=== PATIENT | female | born 1975 | race Caucasian/White ===

== ENCOUNTER 2022-02-25 12:28 | Emergency (ER) | payer BC, SELFPAY ==
[2022-02-25 12:35] VITALS: BP 130/86; PULSE 114; RESP 16; TEMP 36.1; O2SAT 97; BMI 31.1
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
[2022-02-25] MEDS: IPRAT-ALBUT 0.5-2.5 MG/3 ML NEB 1 NEB IH (13:01)
--- OUTSIDE RECORDS SUMMARY | 2022-02-25 13:11 | XMS_ITS | Clinical Summary ---
:1975 Author Organization [facility] [place] [address] Care Team Providers Name Role Phone Meenu Tabares MD Primary Care Provider [phone] Allergies Active Allergy Reactions Severity Noted Date Comments Medroxyprogesterone Hypertension 08/08/2007 Metoclopramide Hcl Agitation 12/05/2018 akathesia Medications Medication Sig Dispensed Refills Start Date End Date Status rx ondansetron (ZOFRAN Take 1 tablet by 4 tablet 0 12/04/2018 Active ODT) 4 mg orally mouth every 8 disintegrating tablet hours if needed. (ED DC MED)Indications: Other migraine without status migrainosus, not intractable albuterol (PROVENTIL) Inhale 3 mL via 30 Neb 0 01/13/2019 Active 0.083 % neb a nebulizer solutionIndications: every 4 hours if Cough, SOB (shortness needed. of breath), Wheezing hydrOXYzine pamoate Take 1-3 60 capsule. 11 05/12/2020 Active (VISTARIL) 25 mg capsules by capsuleIndications: mouth every 6 Anxiety hours if needed for Anxiety. topiramate (TOPAMAX) Take 1 tablet by 180 tablet. 0 07/08/2020 Active 100 mg mouth 2 times tabletIndications: daily. Intractable migraine without status migrainosus, unspecified migraine type albuterol HFA Inhale 2 Puffs 54 g 0 08/31/2020 Active (PRO-AIR; VENTOLIN; by mouth every 4 PROVENTIL) 90 hours if needed. mcg/actuation inhalerIndications: Cough, Wheezing risperiDONE Take 0.5 mg by 0 10/07/2020 Ac tive (RISPERDAL) 0.5 mg mouth 2 times tablet daily. topiramate (TOPAMAX) Take 1 Tablet 180 tablet. 3 10/20/2020 Active 25 mg (25 mg) by mouth tabletIndications: 2 times daily. Intractable migraine without status migrainosus, unspecified migraine type Graduated Compression For personal 2 Packet 0 10/19/2020 Active StockingsIndications: use. Length: Bilateral lower calf Strength: extremity edema 16-20 mmHg DULoxetine (CYMBALTA) Take 1 Capsule 90 Capsule 1 11/16/2020 Active 60 mg Delayed-release (60 mg) by mouth capsuleIndications: once daily. Anxiety divalproex (DEPAKOTE Take 1 Tablet 90 tablet. 0 02/23/2021 Active ER) 250 mg (250 mg) by Extended-Release mouth once tabletIndications: daily. IF GI Intractable migraine UPSET, TAKE WITH without status FOOD. migrainosus, unspecified migraine type frovatriptan (FROVA) Take 1 Tablet 12 tablet. 1 02/24/2021 Active 2.5 mg tabIndications: (2.5 mg) by Intractable migraine mouth 3 times without status daily if needed migrainosus, for Migraine. unspecified migraine Give at minimum type 2hrs apart. Max Dose: 7.5mg per 24hrs. Latuda 40 mg tablet Take 40 mg by 0 03/04/2021 Active mouth. lithium carbonate Take 900 mg by 0 03/13/2021 Active (LITHOBID) 300 mg mouth at Controlled-Release bedtime. tablet busPIRone (BUSPAR) 15 Take 15 mg by 0 03/01/2021 Active mg tablet mouth 2 times daily. aspirin (ECOTRIN) 81 Take 1 Tablet 0 03/24/2021 Active mg enteric coated (81 mg) by mouth tabletIndications: once daily with Type 2 diabetes a meal. mellitus without complication, without long-term current use of insulin (HC) rosuvastatin (CRESTOR) Take 1 Tablet (5 90 Tablet 3 03/24/2021 Active 5 mg mg) by mouth at tabletIndications: bedtime. Type 2 diabetes mellitus without complication, without long-term current use of insulin (HC) blood sugar diagnostic Dispense item 100 Each 5 04/04/2021 Active (Contour Next Test covered by pt Strips) ins. E11.9 NIDDM stripIndications: Type type II - Test 3 2 diabetes mellitus times/day, without complication, Reason: New without long-term diabetes current use of insulin (HC) lancets (Microlet Test 3 times 100 Each 5 04/04/2021 Active Lancet)Indications: daily Type 2 diabetes mellitus without complication, without long-term current use of insulin (HC) acyclovir (ZOVIRAX) TAKE 1 TABLET BY 10 Tablet 5 08/20/2021 Active 800 mg MOUTH TWICE tabletIndications: DAILY Recurrent cold sores traZODone (DESYREL) 50 Take 2 Tablets 60 Tablet 0 10/08/2021 Active mg tabletIndications: (100 mg) by Insomnia, unspecified mouth at type bedtime. 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 Sensitive to light and sound not smell Nausea vomit and diarrhea Acute phase solumedrol and depakote IV's ; relpax has been helpful; Percocet from emergency room Preventions - depakote with topamax; bot ox no help proproanolol and amitriptyline no help Diagnosis from [facility]: chronic intractable migraine headache Medication overuse headache Chronic tension type headache ixed headache syndrome complicated by me dication overuse headache [facility]i had not more to offer so ref to [facility] Jimenez[facility] depakote and topamax and offered relpax again but has been expensive - no Percocet Worse with big fronts and big change of weather Prednisone 60mg helps in rescue phase Helicobacter pylori (H. 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 Excessive or frequent menstruation 09/30/2007 Other and unspecified ovarian cyst 09/30/2007 Immunizations Name Administration Dates Next Due Influenza, IIV4 05/12/2020, 02/24/2019, 05/12/2018 Tdap 05/12/2018, 09/30/2007 Tuberculin (PPD) 07/23/2017 Family History Medical History Relation Name Comments Other Maternal Grandmother alzheimers Heart Disease Paternal Grandfather 75 Allergies Son 1 Asthma Son 2 Anesthesia Malignant Hyperthermia No Family History Blood Disease No Family History Relation Name Status Comments Maternal Grandmother Paternal Grandfather Son 1 Son 2 Social History Tobacco Use Types Packs/Day Years Used Date Current Every Day Smoker Cigarettes 0.5 10 Smokeless Tobacco: Never Used Tobacco Cessation: Ready to Quit: Yes; C ounseling Given: Yes Comments: 5-6 per day Alcohol Use Standard Drinks/Week Comments Yes 0 (1 standard drink = 0.6 oz pure alcoho l) rarely Alcohol Habits Answer Date Recorded How often do you have a drink containing alcohol? Monthly or less 12/31/2018 How many drinks containing alcohol do you have on a 1 or 2 12/31/2018 typical day when you are drinking? How often do you have six or more drinks on one Never 12/31/2018 occasion? Comment: rarely 01/26/2013 Sex Assigned at Date Recorded Not on file Obstetrics History Para Term AB IAB SAB Ectopic Multiple Living Live Births 3 1 1 2 1 Date Outcome GA Total Labor/2nd/3rd Weight Sex Delivery Anes PTL Noelle A 1 A5 Name Clin Labor Term AB AB Comments Vaginal delivery, uncomplicated pregnanc y Last Filed Vital Signs Vital Sign Reading Time Taken Comments Blood Pressure 119/80 03/24/2021 3:04 PM CYBER CRIME INVESTIGATOR Pulse 86 03/24/2021 2:24 PM CYBER CRIME INVESTIGATOR Temperature 37 ??C (98.6 ??F) 03/19/2021 10:20 AM CYBER CRIME INVESTIGATOR Respiratory Rate 16 03/19/2021 10:20 AM CYBER CRIME INVESTIGATOR Oxygen Saturation 100% 03/24/2021 2:24 PM CYBER CRIME INVESTIGATOR Inhaled Oxygen Concentration - - Weight 92.9 kg (204 lb 12.8 oz) 03/24/2021 2:24 PM CYBER CRIME INVESTIGATOR Height 165.1 cm (5' 5) 10/18/2020 4:32 PM CDT Body Mass Index 34.08 10/18/2020 4:32 PM CDT Plan of Treatment Health Maintenance Due Date Last Done Comments Pneumococcal series for age 19-64 10/22/1981 (1 - PCV) Hepatitis C screening for age 0610/22/1993 18-79 Hepatitis B series for Diabetes (1 10/22/1994 of 3 - Risk 3-dose series) Pap test for age 21-65 05/13/2016 05/13/2013 (Completed out side of [facility]), 01/08/2011 (Completed outside of [facility]) Colonoscopy through age 75 10/22/2020 Mammogram for age 45-75 10/22/2020 COVID-19 vaccine series (3 - 12/13/2020 10/18/2020, 021 Booster for Moderna series) Depression screening for age 12+ 07/11/2021 07/11/2020, , 05/16/2020, Additional history exists BMI (ht and wt on same day) for 10/17/2021 10/17/2020, 04/14, age 18+ 02/24/2019, Additional history exists Influenza for age 9-49 01/11/2022 05/12/2020, 02/24/2019, 05/12/2018 Lipids for age 45-75 05/12/2025 05/12/2020, 03/05/2018 Tetanus booster 05/12/2028 05/12/2018, 09/30/2007 Tdap Completed 05/12/2018, 09/30/2007 Results Not on filefrom Last 3 Months Insurance Payer Benefit Plan / Subscriber ID Effective Dates Phone Addre ss Type Group [employer] [employer] [place] [employer] [id number] 2019-Present [address] [address] [place] [address] [id number] (Home) [place] [id number] [employer] [address] (Home) [place] [address] Advance Directives Latest Code Status on File Code Status Date Activated Date Inactivated Comments Full Code 04/27/2018 11:59 PM 04/29/2018 6:28 PM Code Status Discussion: Discussed Care Teams Supply Analyst Relationship Specialty Start Date End Date Meenu Tabares MD PCP - General Family Practice 11/15/14 [address] [place] [address]
[2022-02-25 13:24] VITALS: PULSE 101; RESP 16; O2SAT 97
== END 2022-02-25 13:59 | disposition home or self-care (01) ==
PROVIDERS: Emergency Provider Emergency Medicine; PCP Family Medicine
DX: T59.91XA Toxic effect of unspecified gases, fumes and vapors, accidental (unintentional), initial encounter (principal)
CPT/HCPCS: 94640; 99283; 99284

== ENCOUNTER 2023-01-08 14:40 | Emergency (ER) | payer BC, SELFPAY ==
[2023-01-08 14:58] VITALS: BP 146/91; PULSE 92; RESP 18; TEMP 36.6; O2SAT 98; BMI 34.8
[2023-01-08 15:24] LABS: Appearance Urine Clear (Clear); Bilirubin Urine Negative (Negative); Blood Urine Negative (Negative); Color Urine Yellow (Yellow); Glucose Urine Negative (Negative); Ketones Urine Negative (Negative); Leukocyte Esterase Urine Negative (Negative); Nitrite Urine Negative (Negative); Protein Urine Trace (Negative); Specific Gravity Urine >= 1.030 (1.000-1.030); Urobilinogen Urine 0.2 (0.2-1.0)
[2023-01-08 15:31] LABS: Amphetamine Screen Urine Negative (Negative); Barbiturate Screen Urine Negative (Negative); Benzodiazepines Screen Urine Negative (Negative); Cannabinoid Screen Urine Negative (Negative); Cocaine Screen Urine Negative (Negative); Methadone Screen Urine Negative (Negative); Methamphetamines Screen Urine Negative (Negative); Mucus Urine Moderate; Opiate Screen Urine Negative (Negative); Oxycodone Screen Urine Negative (Negative); Phencyclidine Screen Urine Negative (Negative); RBC Urine 0-2 (0-2); Squamous Epithelial Cell Urine Moderate (None-Few); Tricyclic Antidepressant Urine Negative (Negative)
--- NOTE | 2023-01-08 16:17 | ED.GENADULT ---
HPI - General Adult General Date Seen: 01/08/23 Chief complaint: Psychiatric Problem/Disorder Stated complaint: Hearing voices Time Seen by Provider: 01/08/23 15:12 Source: patient Mode of arrival: ambulatory Limitations: no limitations History of Present Illness HPI narrative: Patient is a 47-year-old female here with her mother with a history of bipolar disorder on medication presenting to emergency department for auditory hallucinations. Patient states around 330 this morning she woke up and was having auditory hallucinations telling her to kill herself. She states she has no plans to kill herself or others. She states this is the 1st time she has had voices since August. That time she was seen at the [facility] emergency department was discharged home in her mother's care. She recently got a new psychiatrist in the have been adjusting her medications and she was recently taken off Depakote. Patient states she feels if she goes home to her current home she would hurt herself but states she would not kill herself. She does feel like she would be safe issues she states with her mother. Her mother, who is in the room with her, also states she feels safe taking the patient home if that is what we decided to do. Patient denies visual hallucination and chest pain, shortness of breath, abdominal pain, constipation, headache, vision changes, weakness, numbness. Related Data Home Medications Medication Instructions Recorded Confirmed buspirone 15 mg tablet 15 mg BID 02/25/22 duloxetine 60 mg capsule,delayed 60 mg PO DAILY 02/25/22 02/25/22 release hydroxyzine HCl 25 mg tablet 25 mg 02/25/22 lithium carbonate 300 mg 300 mg PO HS 02/25/22 02/25/22 tablet,extended release lorazepam 1 mg tablet 1 mg 02/25/22 lurasidone 40 mg tablet (Latuda) 40 mg DAILY 02/25/22 rosuvastatin 5 mg tablet 5 mg DAILY 02/25/22 trazodone 100 mg tablet 100 mg 02/25/22 Allergies Allergy/AdvReac Type Severity Reaction Status Date / Time metoclopramide [From Reglan] Allergy Mild Migraine Verified 02/25/22 12:40 depo Allergy Mild hives Uncoded 02/25/22 12:40 Review of Systems Status of ROS: Reports: 10 or more systems reviewed and unremarkable except as noted in History and below PFSH PFSH Social History Smoking Status: Former smoker Do you use any of these nicotine containing products: None How often do you have a drink containing alcohol: never AUDIT-C Alcohol total score: 0 Non-prescribed substance use: denies use Exam Narrative: Exam Narrative: Const: Well-nourished, Well-developed, in mild distress Eyes: PERRL, no conjunctival injection, and symmetrical lids ENMT: Atraumatic external nose and ears. Moist mucous membranes. Neck: Symmetric, trachea midline, No thyromegaly. CVS: RRR, No murmurs or gallops. Peripheral pulses 2+ and equal in all extremities RESP: Unlabored respiratory effort. Clear to auscultation bilaterally. GI: Nontender/Nondistended, No rebound or guarding. MSK:Extremities w/o deformity, Normal Active ROM Skin: Warm, Dry. No rashes or lesions. Neuro: Normal Muscle tone, No focal neurological deficits. Psych: Awake, Alert, & Oriented x3. Appropriate mood and affect. Const: Vital Signs, click to edit/add: Vital Signs - 24 hr 01/08/23 14:58 01/08/23 18:10 Temperature 98 F Pulse Rate [Right] 92 83 Respiratory Rate 18 16 Blood Pressure [Ri ght Upper Arm] 146/91 H 138/88 Pulse Oximetry 98 97 Oxygen Delivery Me thod Room Air Room Air Course Vital Signs Vital signs: Initial Vital Signs Temperature 98 F 01/08/23 14:58 Temperature Source Temporal Artery Scan 01/08/23 14:58 Pulse Rate 92 01/08/23 14:58 Respiratory Rate 18 01/08/23 14:58 Blood Pressure 146/91 H 01/08/23 14:58 Blood Pressure Mean 109 H 01/08/23 14:58 Pulse Oximetry 98 01/08/23 14:58 Oxygen Delivery Method Room Air 01/08/23 14:58 Vital Signs Temperature 98 F 01/08/23 14:58 Pulse Rate 92 01/08/23 14:58 Respiratory Rate 18 01/08/23 14:58 Blood Pressure 146/91 H 01/08/23 14:58 Pulse Oximetry 98 01/08/23 14:58 Oxygen Delivery Method Room Air 01/08/23 14:58 Temperature 98 F 01/08/23 14:58 Pulse Rate 83 01/08/23 18:10 Respiratory Rate 16 01/08/23 18:10 Blood Pressure 138/88 01/08/23 18:10 Pulse Oximetry 97 01/08/23 18:10 Oxygen Delivery Method Room Air 01/08/23 18:10 Medical Decision Making MDM Narrative Medical decision making narrative: Patient is a 47-year-old female presented emergency department for auditory hallucinations. She says they to lingular soaps she states she has no plans to kill herself. She does have thoughts of self-harm. We did do a urine drug screen that was negative. We had DEC vice president of advertising and they agreed that they think she is safe for discharge. They made a safety plan with the patient and the mother. The mother states that she will lock up any thing the patient can use to harm herself and will check on the patient multiple times per day. The mother is retired so will be with her dollars this entire time. They will follow-up with the psychiatrist tomorrow to see if there be any changes in the medication. She will be seeing her psychologist tomorrow. At this time both the patient and mother feel safe with this plan and would like to be discharged home. This seems reasonable. Lab Data Labs: Lab Results 01/08/23 Range/Units 15:13 Urine Color Yellow (Yellow) Urine Appearance Clear (Clear) Urine pH 6.0 (5.0-8.5) Ur Specific [place] >= 1.030 (1.000-1.030) Urine Protein Trace A (Negative) Urine Glucose (UA) Negative (Negative) Urine Ketones Negative (Negative) Urine Blood Negative (Negative) Urine Nitrite Negative (Negative) Urine Bilirubin Negative (Negative) Urine Urobilinogen 0.2 (0.2-1.0) Ur Leukocyte Esterase Negative (Negative) Urine RBC 0-2 (0-2) Urine WBC 2-5 (0-5) Ur Squamous Epith Cells Moderate A (None-Few) Urine Bacteria None (None) Urine Mucus Moderate A (None) Urine Opiates Screen Negative (Negative) Ur Oxycodone Screen Negative (Negative) Urine Methadone Screen Negative (Negative) Ur Propoxyphene Screen Negative (Negative) Ur Barbiturates Screen Negative (Negative) U Tricyclic Antidepress Negative (Negative) Ur Phencyclidine Scrn Negative (Negative) Ur Amphetamines Screen Negative (Negative) U Methamphetamines Scrn Negative (Negative) U Benzodiazepines Scrn Negative (Negative) Urine Cocaine Screen Negative (Negative) U Marijuana (THC) Screen Negative (Negative) Ur Drug Screen Comment See Note Discharge Plan Discharge Clinical Impression: Auditory hallucination Patient Disposition: Home w/ Parent or Adult Condition: Stable Instructions: Hallucinations (ED) Additional Instructions: Make sure to follow the safety contract. Return for new or worsening symptoms. Prescriptions: No Action lithium carbonate 300 mg tablet extended release 300 mg PO HS Patient Comments: TAKE 1 TABLET BY MOUTH EVERY MORNING THEN TAKE 3 TABLETS BY MOUTH EVERY NIGHT AT BEDTIME buspirone 15 mg tablet 15 mg BID duloxetine 60 mg capsule,delayed release(DR/EC) 60 mg PO DAILY Patient Comments: TAKE 1 CAPSULE BY MOUTH DAILY hydroxyzine HCl 25 mg tablet 25 mg Patient Comments: TAKE 1 TO 3 TABLETS BY MOUTH EVERY 6 HOURS NEEDED lorazepam 1 mg tablet 1 mg Patient Comments: TAKE 1 TABLET BY MOUTH EVERY DAY NEEDED Latuda 40 mg tablet 40 mg DAILY Patient Comments: TAKE 1 TABLET BY MOUTH DAILY rosuvastatin 5 mg tablet 5 mg DAILY trazodone 100 mg tablet 100 mg Patient Comments: TAKE 2 TABLETS BY MOUTH AT BEDTIME NEEDED Follow Up/Referrals: Meenu Tabares MD [Primary Care Provider] - Stand Alone Forms: [employer] Info Instructions
--- NOTE | 2023-01-08 16:39 | ED.NURSE ---
DEC assessment started.
[2023-01-08 18:10] VITALS: BP 138/88; PULSE 83; RESP 16; O2SAT 97
== END 2023-01-08 18:17 | disposition home or self-care (01) ==
PROVIDERS: Emergency Provider Student in an Organized Health Care Education/Training Program; PCP Family Medicine
DX: R44.0 Auditory hallucinations (principal)
CPT/HCPCS: 80306; 81003; 81015; 99283

== ENCOUNTER 2023-05-05 13:30 | Emergency (ER) | payer BC, SELFPAY ==
[2023-05-05 14:05] VITALS: BP 103/71; PULSE 59; RESP 16; TEMP 36; O2SAT 97; BMI 34.3
--- NOTE | 2023-05-05 17:16 | ED_ITS ---
HPI - General Adult General Chief complaint: Neuro Symptoms/Altered Deficit Stated complaint: Muscle spams in legs following med change Time Seen by Provider: 05/05/23 17:16 History of Present Illness HPI narrative: Patient here with her mother . Patient is bipolar and lives in an apartment alone . Patient changed doctors [address] Summer Tom at [facility] and she stated patient is on too many bipolar meds so they have been adjusting. Since weaning off her duloxetine, patient has been experiencing muscle spasms in legs. She has been completely off of it for 1 week and the spasms are worse and she feels unsteady when she walks. Was also started on propranolol. 47-year-old woman presenting to the emergency department with her mother with concern of leg cramping. Times can feel little discoordinated as well. This seems to correlate with a weaning off duloxetine over the last 4 weeks. She underwent an extensive medication review initially on 13 medications and now 7. Has been on Latuda for over a year, also same for olanzapine. Propranolol is a new medication as a p.r.n. that was initiated but symptoms had started prior to beginning p.r.n. propranolol. Does have a history of what sounds like some restless legs are cramping in her feet prior to all of this but this is much worse now. No concern of neurological disorders in herself or family otherwise. Underlying history of bipolar disorder. Admittedly more tremulous than usual as well. Last labs were about 2 months ago. Related Data Home Medications Medication Instructions Recorded Confirmed buspirone 15 mg tablet 30 mg PO BID 02/25/22 05/05/23 hydroxyzine HCl 25 mg tablet 25 mg PO PRN 02/25/22 lithium carbonate 300 mg 300 mg PO HS 02/25/22 05/05/23 tablet,extended release lurasidone 40 mg tablet (Latuda) 60 mg QHS 02/25/22 trazodone 100 mg tablet 100 mg PO QHS 02/25/22 05/05/23 olanzapine 5 mg tablet 5 mg PO QHS 05/05/23 05/05/23 propranolol 20 mg tablet 20 mg PO BID PRN 05/05/23 05/05/23 Allergies Allergy/AdvReac Type Severity Reaction Status Date / Time medroxyprogesterone Allergy Mild Hives Verified 05/08/23 16:17 [From Depo-Provera] metoclopramide [From Reglan] Allergy Mild Migraine Verified 05/08/23 16:17 Review of Systems Status of ROS: Reports: 6 or more systems reviewed and unremarkable except as noted in History and below [facility] Social History Smoking Status: Former smoker Do you use any of these nicotine containing products: None How often do you have a drink containing alcohol: never AUDIT-C Alcohol total score: 0 Non-prescribed substance use: denies use Exam Narrative: Exam Narrative: Generally flatter affect but does laugh easily. Cranial nerves 2-12 intact. There is no nystagmus with full extraocular movements. Moves all extremities without difficulty though she has pronounced resting tremor in her hands.. [id number]. 1+ and equal DTRs. Skin is warm and dry without rash or evidence of trauma. Heart in slower but regular rate and rhythm. Const: Vital Signs, click to edit/add: Vital Signs - 24 hr 05/05/23 14:05 Temperature 96.8 F L Pulse Rate [Pulse Oximeter] 59 L Respiratory Rate 16 Blood Pressure [Le ft Upper Arm] 103/71 Pulse Oximetry 97 Oxygen Delivery Me thod Room Air Documenting provider has reviewed patient's vital signs: yes Course Vital Signs Vital signs: Initial Vital Signs Temperature 96.8 F L 05/05/23 14:05 Temperature Source Temporal Artery Scan 05/05/23 14:05 Pulse Rate 59 L 05/05/23 14:05 Pulse Rhythm Regular 05/05/23 14:05 Pulse Strength 3+ Normal 05/05/23 14:05 Respiratory Rate 16 05/05/23 14:05 Blood Pressure 103/71 05/05/23 14:05 Blood Pressure Mean 81 05/05/23 14:05 Blood Pressure Position Sitting 05/05/23 14:05 Pulse Oximetry 97 05/05/23 14:05 Oxygen Delivery Method Room Air 05/05/23 14:05 Vital Signs Temperature 96.8 F L 05/05/23 14:05 Pulse Rate 59 L 05/05/23 14:05 Respiratory Rate 16 05/05/23 14:05 Blood Pressure 103/71 05/05/23 14:05 Pulse Oximetry 97 05/05/23 14:05 Oxygen Delivery Method Room Air 05/05/23 14:05 Temperature 96.8 F L 05/05/23 14:05 Pulse Rate 68 05/05/23 18:31 Respiratory Rate 18 05/05/23 18:31 Blood Pressure 140/85 H 05/05/23 18:31 Pulse Oximetry 95 05/05/23 18:31 Oxygen Delivery Method Room Air 05/05/23 18:31 Medications Administered Medications: Discontinued Medications Generic Name Dose Route Start Last Admin Trade Name Freq PRN Reason Stop Dose Admin Olanzapine 5 mg 05/05/23 19:45 05/05/23 20:01 Olanzapine 5 Mg Tab.Rapdis PO 05/05/23 19:46 5 mg ONCE ONE Administration Olanzapine 5 mg 05/05/23 19:56 05/05/23 20:09 Olanzapine 5 Mg Tab.Rapdis PO 5 mg ONCE PRN Administration Insomnia Olanzapine 5 mg 05/05/23 19:57 05/05/23 20:10 Olanzapine 5 Mg Tab.Rapdis PO 5 mg ONCE PRN Administration Insomnia Olanzapine 5 mg 05/05/23 19:58 05/05/23 20:10 Olanzapine 5 Mg Tab.Rapdis PO 5 mg ONCE PRN Administration Insomnia Medical Decision Making MDM Narrative Medical decision making narrative: Is reporting exacerbation in underlying restless leg type symptoms with decrease of medication dosing of duloxetine. Does have other medications that may possibly be related. Will verify the chemistries are WNL as potential cause as well as evaluating renal and liver function. Check thyroid and lithium level. Labs returned essentially normal pending at TSH and lithium level prior to departure Is particularly interested in getting some sleep. I think temporary dosing with olanzapine might be helpful here. Would recommend close follow-up with psychiatric provider or primary. Will need to review medications again. Perhaps needs to return to low-dose duloxetine. Well and easily ambulatory on departure See patient discharge plan Lab Data Lab results reviewed: Yes I reviewed the patient's lab results Labs: Lab Results 05/05/23 Range/Units 18:02 WBC 12.54 H (4.50-11.00) K/uL RBC 4.87 (4.00-5.20) m/uL Hgb 13.7 (12.0-16.0) gm/dL Hct 41.7 (33.0-51.0) % MCV 86 (80-100) fL MCH 28 (26-34) pg MCHC 33 (32-36) gm/dL RDW Coeff of Priyanka 12.1 (11.5-15.5) % Plt Count 290 (140-440) K/uL Neut % (Auto) 58.9 (42.0-72.0) % Lymph % (Auto) 33.0 (20-44) % [place] % (Auto) 6.1 (0.0-11.0) % Eos % (Auto) 1.3 (0.0-7.0) % Baso % (Auto) 0.6 (0.0-3.0) % Neut # (Auto) 7.40 H (1.7-7.0) K/uL Lymph # (Auto) 4.10 H (0.90-2.90) K/uL [place] # (Auto) 0.80 (0.00-0.90) K/UL Eos # (Auto) 0.20 (0.00-0.50) K/uL Baso # (Auto) 0.10 (0.00-0.30) K/uL Abs Immat Gran (auto) 0.00 (0.00-0.30) K/uL Imm/Tot Granulo (auto) 0.1 % ESR 5 (2-20) mm/hr Sodium 136 (135-149) mmol/L Potassium 4.2 (3.6-5.1) mmol/L Chloride 104 (96-114) mmol/L Carbon Dioxide 24 (20-32) mmol/L Anion Gap 8 (7-15) mEq/L BUN 13 (5-24) mg/dL Creatinine 1.0 (0.5-1.5) mg/dL Estimated Creat Clear 62.58 Estimated GFR 70 ml/min Glucose 96 (60-115) mg/dL Calcium 8.8 (8.4-10.6) mg/dL Magnesium 2.2 (1.5-2.6) mg/dL Total Bilirubin 0.2 (0.1-1.5) mg/dL Direct Bilirubin 0.0 (0.0-0.5) mg/dL AST 16 (12-35) U/L ALT 15 (4-35) U/L Alkaline Phosphatase 80 (40-150) U/L Total Protein 7.3 (6.0-8.3) g/dL Albumin 4.4 (3.3-5.0) g/dL TSH 5.240 H (0.270-4.20) uIU/mL M[place]o 0.6 (0.5-1.2) mmol/L Discharge Plan Discharge Clinical Impression: Insomnia, Restless legs Patient Disposition: Home w/ Parent or Adult Condition: Stable Additional Instructions: Be sure to stay well-hydrated. In addition to the quinine you have been taking, might consider supplementing with magnesium as discussed for leg cramps. You may need to be restarted on low-dose duloxetine. Please discuss and follow- up with your primary care provider. Pending at in your labs is the thyroid hormone and lithium level; the latter is a send out. Dispensing 4 tabs of olanzapine (Zyprexa) to help with sleep in the short term. Take 1 tablet for sleep and if not asleep in an hour go ahead and take another one. Prescriptions: No Action lithium carbonate 300 mg tablet extended release 300 mg PO HS Patient Comments: TAKE 1 TABLET BY MOUTH EVERY MORNING THEN TAKE 3 TABLETS BY MOUTH EVERY NIGHT AT BEDTIME buspirone 15 mg tablet 30 mg PO BID hydroxyzine HCl 25 mg tablet 25 mg PO PRN Patient Comments: TAKE 1 TO 3 TABLETS BY MOUTH EVERY 6 HOURS NEEDED lurasidone [Latuda] 40 mg tablet 60 mg QHS Patient Comments: TAKE 1 TABLET BY MOUTH DAILY trazodone 100 mg tablet 100 mg PO QHS Patient Comments: TAKE 2 TABLETS BY MOUTH AT BEDTIME NEEDED olanzapine 5 mg tablet 5 mg PO QHS propranolol 20 mg tablet 20 mg PO BID PRN Follow Up/Referrals: Meenu Tabares MD [Primary Care Provider] - Stand Alone Forms: [employer] Info Instructions
[2023-05-05 18:16] LABS: Basophils Percent Auto 0.6 % (0.0-3.0); Eosinophils Percent Auto 1.3 % (0.0-7.0); Hematocrit 41.7 % (33.0-51.0); Hemoglobin* 13.7 gm/dL (12.0-16.0); Immature Granulocytes Pct Auto 0.1 %; Mean Corpuscular HGB Conc 33 gm/dL (32-36); Mean Corpuscular Hemoglobin 28 pg (26-34); Mean Corpuscular Volume 86 fL (80-100); Monocytes Percent Auto 6.1 % (0.0-11.0); Neutrophils Percent Auto 58.9 % (42.0-72.0); Platelet Count* 290 K/uL (140-440); RDW Coefficient of Variation % 12.1 % (11.5-15.5); Red Blood Count 4.87 m/uL (4.00-5.20); White Blood Count* 12.54 K/uL (4.50-11.00)
[2023-05-05 18:26] LABS: Slide Review Reflex No
[2023-05-05 18:31] VITALS: BP 140/85; PULSE 68; RESP 18; O2SAT 95
[2023-05-05 18:34] LABS: Albumin* 4.4 g/dL (3.3-5.0); Chloride* 104 mmol/L (96-114); Sodium* 136 mmol/L (135-149)
[2023-05-05 18:35] LABS: Potassium* 4.2 mmol/L (3.6-5.1)
[2023-05-05 18:36] LABS: Est. Creatinine Clearance* 62.58; Estimated Glomerular Filt Rate 70 ml/min
[2023-05-05 18:37] LABS: Alkaline Phosphatase* 80 U/L (40-150); Anion Gap 8 mEq/L (7-15); Aspartate Amino Transferase* 16 U/L (12-35); Bilirubin Total* 0.2 mg/dL (0.1-1.5); Blood Urea Nitrogen* 13 mg/dL (5-24); Carbon Dioxide* 24 mmol/L (20-32); Glucose* 96 mg/dL (60-115); Total Protein* 7.3 g/dL (6.0-8.3)
[2023-05-05 18:38] LABS: Alanine Aminotransferase* 15 U/L (4-35); Calcium* 8.8 mg/dL (8.4-10.6); Magnesium* 2.2 mg/dL (1.5-2.6)
[2023-05-05 19:18] LABS: Erythrocyte SedimentationRate* 5 mm/hr (2-20)
[2023-05-05] MEDS: OLANZapine 5 MG TAB.RAPDIS PO ×4 (20:01→20:10)
[2023-05-07 19:25] LABS: Lithium, Serum or Plasma 0.6 mmol/L (0.5-1.2)
== END 2023-05-05 20:11 | disposition home or self-care (01) ==
PROVIDERS: Emergency Provider Family Medicine; PCP Family Medicine
DX: G47.00 Insomnia, unspecified (principal); G25.81 Restless legs syndrome
CPT/HCPCS: 36415; 80048; 80076; 80178; 83735; 84443; 85025; 85651; 99284; A9270

== ENCOUNTER 2023-05-08 16:08 | Emergency (ER) | payer BC, SELFPAY ==
[2023-05-08] VITALS (13 sets, daily range): BP systolic 99–136; BP diastolic 62–87; PULSE 54–68; RESP 12–16; TEMP 35.7; O2SAT 94–99; BMI 32.6
--- NOTE | 2023-05-08 16:37 | ED.HEATRA ---
HPI - Head Injury General Time Seen by Provider: 16:37 Date Seen: 05/08/23 Chief complaint: Head Injury/Pain Stated complaint: Fell early AM-hit head and lost cons Time Seen by Provider: 05/08/23 16:34 Source: patient and RN notes reviewed Mode of arrival: ambulatory Limitations: no limitations History of Present Illness HPI Narrative: Briseida is a very pleasant 47-year-old female with history of bipolar disorder who is brought to the emergency room by her mom for evaluation regarding a fall early this morning. Patient is unsure of why she got up out of bed but thought it was because she needed to use the bathroom. She noted that she fell and thought she was knocked out as she woke up on the floor. She does endorse that she lost control of her bladder. She does not remember if she had gone to the bathroom or had not made it to the bathroom. She did call for her mom but her mom who had been staying with her was not there last night. Today she notes that she has some mild neck stiffness but denies pain. She notes no fever cough cold or congestion. Her mom describes that Briseida had been seen for restless legs a week ago. Two weeks prior she has been taken off duloxetine and started on propanolol. She continues on trazodone, lithium, Latuda, plans a Pean BuSpar and hydroxyzine. When she was seen for her restless legs she was put on magnesium but she does not think it has really helped her. Upon further discussion she may have had a similar incidence of passing out with some seizure-like activity that was witnessed this past summer. She did not seek medical attention for that. She had been on Depakote and been taken off of it this summer. She denies a past history of seizures. Mom notes that there was a mild elevation of the white count last time she was seen. Briseida denies any fever chills or other symptoms. Related Data Home Medications Medication Instructions Recorded Confirmed buspirone 15 mg tablet 30 mg PO BID 02/25/22 05/08/23 hydroxyzine HCl 25 mg tablet 25 mg PO PRN 02/25/22 lithium carbonate 300 mg 300 mg PO HS 02/25/22 05/08/23 tablet,extended release lurasidone 40 mg tablet (Latuda) 60 mg QHS 02/25/22 trazodone 100 mg tablet 100 mg PO QHS 02/25/22 05/08/23 olanzapine 5 mg tablet 5 mg PO QHS 05/05/23 05/08/23 propranolol 20 mg tablet 20 mg PO BID PRN 05/05/23 05/08/23 Allergies Allergy/AdvReac Type Severity Reaction Status Date / Time medroxyprogesterone Allergy Mild Hives Verified 05/08/23 16:17 [From Depo-Provera] metoclopramide [From Reglan] Allergy Mild Migraine Verified 05/08/23 16:17 Review of Systems Status of ROS: Reports: 10 or more systems reviewed and unremarkable except as noted in History and below Const: Denies: fever, chills or fatigue Eyes: Denies: change in vision or blurry vision ENMT: Reports: neck pain (Described as stiffness); Denies: throat pain, difficulty swallowing, ear pain, ear discharge, vertigo or nasal discharge Cardio: Denies: chest pain or shortness of breath with exertion Resp: Denies: shortness of breath or cough GI: Denies: abdominal pain, nausea, vomiting, diarrhea or difficulty swallowing : Reports: urinary incontinence; Denies: painful urination, urinary frequency or blood in urine Musculo: Reports: neck pain (Described as stiffness) Neuro: Denies: headache or vertigo Endo: Denies: fatigue PFSH PFSH Social History Smoking Status: Current every day smoker What tobacco products do you use: cigarettes Smoking packs per day: 0.25 Smoking cigarettes per day: 5.0 Years smoked: 16 Smoking pack-years: 4.00 Do you use any of these nicotine containing products: E-Cigarettes and Vaping Products Second hand tobacco smoke exposure: No How often do you have a drink containing alcohol: never AUDIT-C Alcohol total score: 0 Non-prescribed substance use: denies use Exam Narrative: Exam Narrative: Patient is alert and oriented. Very pleasant young woman. EOM is full without nystagmus and pupils are equal round reactive. No photophobia. Head appears to be atraumatic normocephalic. No midline cervical tenderness but patient does have stiffness and discomfort with neck rotation. Heart with regular rate and rhythm and lungs are clear bilaterally. Abdomen soft. Moving all extremities. Upper extremity strength and motor is intact. No evidence of unusual leg movement. Const: Vital Signs, click to edit/add: Vital Signs - 24 hr 05/08/23 16:11 05/08/23 17:30 05/08/23 17:41 Temperature 96.2 F L Pulse Rate 57 L 55 L Pulse Rate [Pulse Oximeter] 62 Respiratory Rate 16 Blood Pressure 105/63 101/62 Blood Pressure [Ri ght Upper Arm] 136/81 Pulse Oximetry 94 95 96 Oxygen Delivery Me thod Room Air 05/08/23 17:50 05/08/23 17:53 05/08/23 18:01 Temperature Pulse Rate 58 L 68 57 L Pulse Rate [Pulse Oximeter] Respiratory Rate 14 16 12 Blood Pressure 100/72 111/85 117/81 Blood Pressure [Ri ght Upper Arm] Pulse Oximetry 97 95 97 Oxygen Delivery Me thod 05/08/23 18:11 05/08/23 18:21 05/08/23 18:30 Temperature Pulse Rate 58 L 56 L 56 L Pulse Rate [Pulse Oximeter] Respiratory Rate 14 14 12 Blood Pressure 105/75 106/79 99/75 Blood Pressure [Ri ght Upper Arm] Pulse Oximetry 98 99 97 Oxygen Delivery Me thod 05/08/23 18:40 05/08/23 18:51 05/08/23 19:01 Temperature Pulse Rate 54 L 57 L 55 L Pulse Rate [Pulse Oximeter] Respiratory Rate 12 14 Blood Pressure 100/80 116/85 110/87 Blood Pressure [Ri ght Upper Arm] Pulse Oximetry 98 99 99 Oxygen Delivery Me thod Course Course ED Course: Differential diagnosis includes but is not limited to seizure disorder, concussion, medication withdrawal, electrolyte abnormality, urinary tract infection. Will obtain labs to include CBC, comprehensive, CRP, magnesium as well as urinalysis. Head CT and cervical spine CT are currently pending. Reevaluation(s) Reevaluation #1: Briseida continues to do well. I do report that she has negative CTs of the head and neck. Currently awaiting laboratory values and then I will speak with Neurology. Consultations Consultation #1: I had the pleasure of speaking with Dr. Edith Montero of [facility]. At this time after our discussion we will hold off on restarting duloxetine. Suggestion for follow-up with MRI with and without contrast as well as an EEG and consult with General Neurology or the [place] [facility]. Vital Signs Vital signs: Initial Vital Signs Temperature 96.2 F L 05/08/23 16:11 Temperature Source Temporal Artery Scan 05/08/23 16:11 Pulse Rate 62 05/08/23 16:11 Respiratory Rate 16 05/08/23 16:11 Blood Pressure 136/81 05/08/23 16:11 Blood Pressure Mean 99 05/08/23 16:11 Blood Pressure Position Sitting 05/08/23 16:11 Pulse Oximetry 94 05/08/23 16:11 Oxygen Delivery Method Room Air 05/08/23 16:11 Vital Signs Temperature 96.2 F L 05/08/23 16:11 Pulse Rate 62 05/08/23 16:11 Respiratory Rate 16 05/08/23 16:11 Blood Pressure 136/81 05/08/23 16:11 Pulse Oximetry 94 05/08/23 16:11 Oxygen Delivery Method Room Air 05/08/23 16:11 Temperature 96.2 F L 05/08/23 16:11 Pulse Rate 55 L 05/08/23 19:01 Respiratory Rate 14 05/08/23 18:51 Blood Pressure 110/87 05/08/23 19:01 Pulse Oximetry 99 05/08/23 19:01 Oxygen Delivery Method Room Air 05/08/23 16:11 MDM - Head Injury MDM Narrative Medical decision making narrative: 1. Fall-patient does not recall the events. However, with urinary incontinence this does raise the possibility of a seizure. Head CT was reassuring as were laboratory values. Patient vital signs are within normal limits. I spoke with Dr. Montero from [facility] at [facility]. At this time she does suggest an MRI with and without contrast as an outpatient. Also looks to suggest an EEG and follow-up with either her Neurology group or [place] [facility]. Both phone numbers were given to patient for follow-up. At this time will hold off on restarting duloxetine. 2. Loss of consciousness -no evidence of skull fracture intracranial bleed on head CT. 3. Cervical strain-no evidence of fracture on CT 4. Leukocytosis-no obvious sign of infection with clear lung sounds, no evidence of fever. White count was 12.2 H which is essentially the same as previous value. CRP 1.3 with no previous value for comparison. 3. Disposition -home with Mom. Advised patient to avoid any situation where a subsequent seizure would place her in danger such as driving, being on a ladder except trip. Return to the emergency room for worsening symptoms. Patient denies alcohol use. Would advise her to continue to abstain. Return as needed. Medical Records Attestation: I reviewed the patient's medical records. Lab Data Attestation: I reviewed the patient's lab results. Labs: Lab Results 05/08/23 Range/Units 17:20 WBC 12.28 H (4.50-11.00) K/uL RBC 4.75 (4.00-5.20) m/uL Hgb 13.3 (12.0-16.0) gm/dL Hct 41.0 (33.0-51.0) % MCV 86 (80-100) fL MCH 28 (26-34) pg MCHC 32 (32-36) gm/dL RDW Coeff of Priyanka 12.1 (11.5-15.5) % Plt Count 258 (140-440) K/uL Neut % (Auto) 53.9 (42.0-72.0) % Lymph % (Auto) 37.2 (20-44) % [place] % (Auto) 6.5 (0.0-11.0) % Eos % (Auto) 1.2 (0.0-7.0) % Baso % (Auto) 0.7 (0.0-3.0) % Neut # (Auto) 6.60 (1.7-7.0) K/uL Lymph # (Auto) 4.60 H (0.90-2.90) K/uL [place] # (Auto) 0.80 (0.00-0.90) K/UL Eos # (Auto) 0.10 (0.00-0.50) K/uL Baso # (Auto) 0.10 (0.00-0.30) K/uL Abs Immat Gran (auto) 0.10 (0.00-0.30) K/uL Imm/Tot Granulo (auto) 0.5 % Sodium 137 (135-149) mmol/L Potassium 4.5 (3.6-5.1) mmol/L Chloride 107 (96-114) mmol/L Carbon Dioxide 24 (20-32) mmol/L Anion Gap 6 L (7-15) mEq/L BUN 14 (5-24) mg/dL Creatinine 1.2 (0.5-1.5) mg/dL Estimated Creat Clear 54.26 Estimated GFR 56 ml/min Glucose 103 (60-115) mg/dL Calcium 8.7 (8.4-10.6) mg/dL Magnesium 2.2 (1.5-2.6) mg/dL Total Bilirubin 0.3 (0.1-1.5) mg/dL AST 16 (12-35) U/L ALT 15 (4-35) U/L Alkaline Phosphatase 77 (40-150) U/L C-Reactive Protein 1.3 H (0.5-1.0) mg/dL Total Protein 7.0 (6.0-8.3) g/dL Albumin 4.2 (3.3-5.0) g/dL Imaging Data CT scan - head: Attestation: I have reviewed the pertinent imaging results. My impression: By my read no obvious skull fracture or intracranial bleed Radiologist's impression: FINDINGS: No acute intracranial hemorrhage is identified. No extra-axial collections are evident and there is no mass effect or midline shift. Ventricles are normal in size and configuration. Brain parenchyma appears normal with unremarkable briceno-white differentiation. Osseous structures are within normal limits and no fractures are seen. Included portions of the paranasal sinuses and mastoid air cells are normally aerated. IMPRESSION: Normal non-contrast head CT CT- Other: Attestation: I have reviewed the pertinent imaging results. My impression: Cervical spine without acute fracture by my read. Radiologist's impression: INDINGS: No acute fractures are identified. There is straightening of cervical lordosis, possibly due to muscle spasm. Osseous alignment is otherwise unremarkable and no subluxation is seen. Prevertebral soft tissues appear normal. Mild degenerative disc disease is noted at C3-4. Included portions of the airway and lung apices are within normal limits. IMPRESSION: Straightened lordosis, possibly due to muscle spasm. No fracture, subluxation, or other acute finding identified. Discharge Plan Discharge Clinical Impression: Seizure-like activity, Bipolar disorder Fall Qualifiers: Encounter type: initial encounter Qualified Code(s): W19.XXXA - Unspecified fall, initial encounter Patient Disposition: Home, Self-Care Condition: Improved Additional Instructions: 1. Hold off on restarting duloxetine at this time. 2. Follow-up with your primary MD for ordering of an MRI with and without contrast. There was concerned that you may have had a seizure a that caused her fall. 3. Follow-up with Neurology: [facility] phone number [phone] [place] [facility] number [phone] You will need to be scheduled for an EEG and further evaluated. Return to the emergency room for worsening symptoms Prescriptions: No Action lithium carbonate 300 mg tablet extended release 300 mg PO HS Patient Comments: TAKE 1 TABLET BY MOUTH EVERY MORNING THEN TAKE 3 TABLETS BY MOUTH EVERY NIGHT AT BEDTIME buspirone 15 mg tablet 30 mg PO BID hydroxyzine HCl 25 mg tablet 25 mg PO PRN Patient Comments: TAKE 1 TO 3 TABLETS BY MOUTH EVERY 6 HOURS NEEDED lurasidone [Latuda] 40 mg tablet 60 mg QHS Patient Comments: TAKE 1 TABLET BY MOUTH DAILY trazodone 100 mg tablet 100 mg PO QHS Patient Comments: TAKE 2 TABLETS BY MOUTH AT BEDTIME NEEDED olanzapine 5 mg tablet 5 mg PO QHS propranolol 20 mg tablet 20 mg PO BID PRN Follow Up/Referrals: Meenu Tabares MD [Primary Care Provider] - Stand Alone Forms: [employer] Info Instructions
--- NOTE | 2023-05-08 16:43 | CRLHL7_ITS ---
For Patients: As a result of the Century Cures Act, medical imaging exams and procedure reports are released immediately into your electronic medical record. You may view this report before your referring provider. If you have questions, please contact your health care provider. INDICATION: LOC after fall CT HEAD WITHOUT CONTRAST TECHNIQUE: Multiple axial CT images were performed through the head without intravenous contrast administration. COMPARISON: No previous studies are currently available for comparison. FINDINGS: No acute intracranial hemorrhage is identified. No extra-axial collections are evident and there is no mass effect or midline shift. Ventricles are normal in size and configuration. Brain parenchyma appears normal with unremarkable briceno-white differentiation. Osseous structures are within normal limits and no fractures are seen. Included portions of the paranasal sinuses and mastoid air cells are normally aerated. IMPRESSION: Normal non-contrast head CT. XAVI GROVE MD [facility] Please note that all CT scans at this facility use dose modulation, iterative reconstruction, and/or weight-based dosing when appropriate to reduce radiation dose to as low as reasonably achievable. Dictated by: Yo Grove MD @ 05/08/2023 17:28:39 (Electronically Signed)
--- NOTE | 2023-05-08 16:43 | CRLHL7_ITS ---
For Patients: As a result of the Cures Act, medical imaging exams and procedure reports are released immediately into your electronic medical record. You may view this report before your referring provider. If you have questions, please contact your health care provider. INDICATION: LOC AFTER FALL CT CERVICAL SPINE WITHOUT CONTRAST TECHNIQUE: Multidetector axial CT imaging was performed through the cervical spine, without contrast. Sagittal and coronal reconstructions were generated. FINDINGS: No acute fractures are identified. There is straightening of cervical lordosis, possibly due to muscle spasm. Osseous alignment is otherwise unremarkable and no subluxation is seen. Prevertebral soft tissues appear normal. Mild degenerative disc disease is noted at C3-4. Included portions of the airway and lung apices are within normal limits. IMPRESSION: Straightened lordosis, possibly due to muscle spasm. No fracture, subluxation, or other acute finding identified. XAVI GROVE MD [facility] Please note that all CT scans at this facility use dose modulation, iterative reconstruction, and/or weight-based dosing when appropriate to reduce radiation dose to as low as reasonably achievable. Dictated by: Yo Grove MD @ 05/08/2023 17:27:39 (Electronically Signed)
[2023-05-08 17:29] LABS: Basophils Percent Auto 0.7 % (0.0-3.0); Eosinophils Percent Auto 1.2 % (0.0-7.0); Hemoglobin* 13.3 gm/dL (12.0-16.0); Immature Granulocytes Pct Auto 0.5 %; Lymphocytes Percent Auto 37.2 % (20-44); Mean Corpuscular HGB Conc 32 gm/dL (32-36); Mean Corpuscular Hemoglobin 28 pg (26-34); Mean Corpuscular Volume 86 fL (80-100); Monocytes Percent Auto 6.5 % (0.0-11.0); Neutrophils Percent Auto 53.9 % (42.0-72.0); Platelet Count* 258 K/uL (140-440); RDW Coefficient of Variation % 12.1 % (11.5-15.5); Red Blood Count 4.75 m/uL (4.00-5.20); White Blood Count* 12.28 K/uL (4.50-11.00)
[2023-05-08 17:36] LABS: Slide Review Reflex No
[2023-05-08 17:46] LABS: Albumin* 4.2 g/dL (3.3-5.0); Chloride* 107 mmol/L (96-114); Potassium* 4.5 mmol/L (3.6-5.1); Sodium* 137 mmol/L (135-149)
[2023-05-08 17:48] LABS: Creatinine* 1.2 mg/dL (0.5-1.5); Est. Creatinine Clearance* 54.26; Estimated Glomerular Filt Rate 56 ml/min; Magnesium* 2.2 mg/dL (1.5-2.6)
[2023-05-08 17:49] LABS: Alanine Aminotransferase* 15 U/L (4-35); Alkaline Phosphatase* 77 U/L (40-150); Anion Gap 6 mEq/L (7-15); Aspartate Amino Transferase* 16 U/L (12-35); Bilirubin Total* 0.3 mg/dL (0.1-1.5); Blood Urea Nitrogen* 14 mg/dL (5-24); Carbon Dioxide* 24 mmol/L (20-32); Glucose* 103 mg/dL (60-115)
[2023-05-08 17:50] LABS: Calcium* 8.7 mg/dL (8.4-10.6)
[2023-05-08 17:52] LABS: C Reactive Protein* 1.3 mg/dL (0.5-1.0)
--- NOTE | 2023-05-08 19:04 | ED.NURSE ---
Orthostatic VS: 1746: Laying BP 103/63 P 55 Sitting BP 100/72 P 64 Standing BP 111/85 P 65
== END 2023-05-08 19:10 | disposition home or self-care (01) ==
PROVIDERS: Emergency Provider Family Medicine; PCP Family Medicine
DX: G40.89 Other seizures (principal); F31.9 Bipolar disorder, unspecified; W19.XXXA Unspecified fall, initial encounter
CPT/HCPCS: 36415; 70450; 72125; 80053; 81001; 83735; 85025; 86140; 99284; 99285; 99291

== ENCOUNTER 2023-10-04 08:15 | Outpatient (RCR) | payer BC, SELFPAY ==
--- NOTE | 2023-08-19 15:50 | PT.OPEX ---
PT [place] Outpatient Eval PT [facility] Outpatient Eval Start: 08/19/23 12:25 Freq: Status: Active Protocol: Document 08/19/23 12:25 GIGI (Rec: 08/19/23 12:36 [facility] [id number]) E-signed By Vanesa Douglass PT Physical Therapy Outpatient Evaluation Insurance Information Recert Due Date 11/16/23 Insurance Name Medicaid,Blue Cross/Blue Shield Medical Diagnosis RIGHT RTC TENDONITIS M67.813 Treating Diagnosis RIGHT SHOULDER PAIN M25.511 Referring MD ROSIE DELGADO Subjective Subjective PATIENT REPORTS STARTING HALDOL ~4WEEKS AGO AND BEGAN HAVING RIGHT SHOULDER PAIN THAT LIMITED HER LIFTING AND REACHING. HER PHYSICIAN HAS DECREASED THE DOSAGE AND FEELS THIS HAS HELPED BUT STILL RATES HER PAIN AT REST A 5 AND WITH REACHING 8/10. SHE IS HERE TO DECREASE HER PAIN. Pain Comments 5/10 AT REST 8/10 WITH REACHING AND LIFTING Date of Last Physician Visit 08/13/23 Current Work Status Unemployed Preferred Name RENÉ Precautions Treatment Precautions/Contraindications BIPOLAR DISORDER, DEPRESSION, DMII (CONTROLLED) Therapy Limitations/Systems Review Not Limited Objective Other/Pertinent Objective CERVICAL ROM: WFL SHOULDER AROM Flexion: R 138 Abduction: R 112 Internal Rotation: R T8 External Rotation: R 82 SHOULDER MMT: Shoulder flexion: R 4/5 Shoulder abduction: R 4/5 Shoulder External Rotation: R 4/5 Shoulder Internal Rotation: R 4+/5 Elbow flexion: R 4+/5 Elbow extension R 4+ /5 Shoulder impingement HawkinsKennedy Test: (+) Neer Test: (+) Unique Test(subacromial) : (-) Painful arc 60-120 scaption: ( +) Rotator cuff tendonitis Speeds test(biceps):(-) Yergasons test(biceps-arm at side elbow flexed resist supination): (-) *Empty can/Jobes (Supra): (+) *full can:(-) Lift off test (subscap): (-) *horn blower (90-90 resistance t. minor and infra) (-) drop arm test:(-) Labral Tear/Instability /AC joint Scarf test (elbow to chin): (- ) Paxiono sign(AC squeeze): (-) Apprehension: (-) Obriens test - (-) JOINT MOBILITY/PALPATION: ANTERIOR SHOULDER TENDERNESS ALONG BICEP; NORMAL JOINT MOBILITY TX: UBE 5' TABLE SLIDE INTO FLEX 3 X 10SEC WALL SLIDE 3 X 10SEC STDG TB (GREEN) ROW X 15 HOLD 3 SEC STDG TB (GREEN) S'EXT X 15 HOLD 3 SEC STDG TB (RED) S'ER X 15 Assessment Assessment/Impression PATIENT IS A [address] ROSIE DELGADO TO EVAL AND TX RIGHT RTC TENDONITIS; PMHX INCLUDES BUT NO LIMITED TO BIPOLAR DISORDER, DEPRESSION, DMII. PATIENT REPORTS AN IDIOPATHIC ONSET THAT SHE SPECULATES STARTED AT THE TIME SHE BEGAN HALDOL MEDS FOR HER BIPOLAR DISORDER . SHE HAS SINCE HAD THE DOSAGE DECREASED AND NOTES SOME IMPROVEMENT. SHE DEMONSTRATE NORMAL PROM AND A PAINFUL ARC ON THE RIGHT SHOULDER (SEE ABOVE) C/O ANTERIOR BICEPS TENDERNESS. SHE WOULD BENEFIT FROM SKILLED PHYSICAL THERAPY FOR SYMPTOM MGMT, ROM, RTC AND SCAPULAR STRENGTHENING AND STABILIZATION TO RETURN TO THE PRE-SYMPTOMATIC STATUS. PATIENT IS IN AGREEMENT WITH POC AND FREQ. Primary Functional Limitations REACHING LIFTING ADL'S Plan of Care Rehabilitation Potential Good Physical Therapy Goals IN 6-10 VISITS: 1. DECREASE SHOULDER PAIN TO < /2-3/10 WITH DAILY ACTIVITIES AND WITH THE PROGRESSION OF HER HEP OVER THE NEXT 4 WEEKS. 2. DEMONSTRATE PAIN FREE AROM OVER THE NEXT 4-6 WEEKS DURING DAILY ACTIVITIES WITHOUT FLARE UPS OF SYMPTOMS. 3. PATIENT WILL VERBALIZED UNDERSTANDING OF POSTURING AND BODY MECHANICS IT RELATES TO DECREASING STRESS, IMPROVED SHOULDER MECHANICS, AND DECREASED SYMPTOMS. 4.PATIENT WILL DEMONSTRATES IMPROVED STRENGTH TO FACILITATE RETURN TO DAILY ACTIVITIES WITH LESS SYMPTOMS AND DECREASED OPPORTUNITIES FOR FLARE UP OF PAIN 5. PATIENT WILL BE INDEPENDENT WITH HER HEP WITHIN THE NEXT 6-8 WEEKS FOR PROGRESSION TWD ABOVE MENTION GOALS, CONTINUED MGMT OF SYMPTOMS, AND ONGOING SELF IMPROVEMENTS IN POSTURING/STRENGTH/ STABILIZATION. Coordination/Communication With Referral Source Treatment Plan/Direct Interventions Ice/Cold/Vasopneumatic,Joint Mobilization,Manual Therapy, Neuromuscular Re-ed,Self-Care/ Home Management,Therapeutic Activities,Therapeutic Exercises Frequency/Duration 1W4 Patient Will Be Discharged From Therapy Completion of LTG(s), Independently Progressing Evaluation Billing Untimed Code Treatment Minutes 20 PT Eval No Charge No Complexity Moderate Certification Information Initial Certification Date 08/19/23 Ending Certification Date 11/16/23 Provider Signature Shows Agreement With POC & Medical Necessity Physician Signature & Date Requested Please Sign/Date Here Physician Comment/Change : Physician NPI Number #
== END 2023-11-29 14:55 | disposition home or self-care (01) ==
PROVIDERS: PCP Family Medicine; Visit Provider Student in an Organized Health Care Education/Training Program
DX: M75.81 Other shoulder lesions, right shoulder (principal); Z51.89 Encounter for other specified aftercare
CPT/HCPCS: 97032; 97035; 97110; 97140; 97162